=== PATIENT | female | born 1990 | race Caucasian/White ===

== ENCOUNTER → 2016-10-01 | Outpatient (CLI) | payer BC ==
[2016-10-01 15:42] LABS: CH 31.1; CHCM 34.4; HCT 41.5 % (34.0-46.0); HDW 2.34; HGB 13.9 gm/dL (11.4-16.0); MCH 30.4 pg (25.0-35.0); MCHC 33.5 g/dL (31.0-37.0); MCV 90.8 fL (80.0-100.0); Mean Platelet Volume 8.4; RBC 4.57 m/uL (3.80-5.40); RDW 12.7 % (11.5-15.5); WBC 14.4 k/uL (3.8-10.6)
--- NOTE | 2016-10-01 15:44 | US ---
EXAMINATION TYPE: US OB <= 14 wk fetus DATE OF EXAM: 10/01/2016 3:16 PM COMPARISON: NONE CLINICAL HISTORY: C36 Confirm Dates. EXAM PERFORMED: Transabdominal (TA) EXAM MEASUREMENTS: GESTATIONAL AGE / DATING Physician Established: (not yet established Dates by LMP: ( 9 weeks/5 days) EDC: 05/01/17 Dates by First Scan: 1st scan today Dates by Current Scan for: (9 weeks/1 days) EDC: 05/05/2017 MATERNAL ANATOMY Uterus: 12.6 x 5.0 x 7.7cm Right Ovary: 2.6 x 2.1 x 2.1cm Left Ovary: 2.3 x 1.4 x 1.6cm Post CDS / Adnexa: wnl : GESTATION / SURVEY CRL: 2.3cm ( 9 weeks/1 days) Yolk Sac (normal less than 6mm): Heart Rate: 188 bpm IUP: Viable IUP Date of LMP: 07/25/17 Beta HcG (if available): not available TECHNOLOGIST IMPRESSION: viable iup, dates above IMPRESSION: Single viable intrauterine corresponding to ultrasound age 9 weeks 1 day with estimated mark e of delivery second May 2017 by today's exam
[2016-10-01 16:03] LABS: Glucose 81 mg/dL (74-99); Non-African American GFR(MDRD) >60 (>60 ml/min/1.73 sqM)
[2016-10-01 16:34] LABS: Hepatitis B Surface Ag Index 0.07
[2016-10-03 05:00] LABS: Toxoplasma Antibody (IgG) <3.0 IU/mL (<7.2)
[2016-10-03 08:09] LABS: HIV-1/HIV-2 Ab Screen NONREAC (NON REAC)
== END | disposition home or self-care (01) ==
LOC: RADUSWWP 14:52
PROVIDERS: ATTEND Obstetrics & Gynecology
DX: Z36 Encounter for antenatal screening of mother (principal); Z34.81 Encounter for supervision of other normal pregnancy, first trimester; Z3A.09 9 weeks gestation of pregnancy
CPT/HCPCS: 76801; 82565; 82947; 85027; 86762; 86777; 86778; 86780; 86850; 86900; 86901; 87340; 87389

== ENCOUNTER 2016-10-30 14:06 | Emergency (ER) | payer BC, OTHER ==
[2016-10-30 14:14] VITALS: RESP 18
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
[2016-10-30 15:18] VITALS: BP 127/74; PULSE 90; TEMP 98.2
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
== END 2016-10-30 15:18 | disposition home or self-care (01) ==
LOC: EC 14:06
DX: O26.891 Other specified pregnancy related conditions, first trimester (principal); O99.331 Smoking (tobacco) complicating pregnancy, first trimester; S39.91XA Unspecified injury of abdomen, initial encounter; F17.200 Nicotine dependence, unspecified, uncomplicated; W50.1XXA Accidental kick by another person, initial encounter; Y93.F9 Activity, other caregiving; Y92.239 Unspecified place in hospital as the place of occurrence of the external cause; Y99.0 Civilian activity done for income or pay; Z3A.13 13 weeks gestation of pregnancy
CPT/HCPCS: 76801; 99284

== ENCOUNTER → 2017-01-15 | Outpatient (CLI) | payer BC ==
[2017-01-15 10:23] LABS: CH 31.5; CHCM 34.4; HCT 38.3 % (34.0-46.0); HDW 2.76; HGB 13.1 gm/dL (11.4-16.0); MCH 31.4 pg (25.0-35.0); MCHC 34.1 g/dL (31.0-37.0); MCV 92.1 fL (80.0-100.0); Mean Platelet Volume 8.3; RBC 4.16 m/uL (3.80-5.40); WBC 15.3 k/uL (3.8-10.6)
== END | disposition home or self-care (01) ==
LOC: LABWHC1 08:57
PROVIDERS: ATTEND Obstetrics & Gynecology
DX: Z34.82 Encounter for supervision of other normal pregnancy, second trimester (principal); Z3A.00 Weeks of gestation of pregnancy not specified
CPT/HCPCS: 36415; 82950; 85027

== ENCOUNTER 2017-03-07 14:10 | Observation (INO) | payer BC ==
[2017-03-07 14:50] VITALS: BP 140/92; PULSE 112; RESP 16; TEMP 97.4
[2017-03-07 14:53] LABS: Appearance,Urine Clear (Clear); Bilirubin,Urine Negative (Negative); Glucose,Urine (UA) Negative (Negative); Ketones,Urine Trace (Negative); Leukocyte Esterase,Urine Trace (Negative); Mucus,Urine Few /hpf; Nitrite,Urine Negative (Negative); Particle Count 6035; Protein,Urine 1+ (Negative); Specific Gravity,Urine 1.028 (1.001-1.035); Squamous Epithelial Cell,Urine 3 /hpf (0-4); UA Billing (MACRO vs. MICRO) MICRO; WBC,Urine 2 /hpf (0-5)
[2017-03-07 15:36] LABS: Basophils # (A) 0.1 k/uL (0-0.2); Basophils % (A) 1 %; CH 30.9; CHCM 33.9; Eosinophils # (A) 0.2 k/uL (0-0.7); Eosinophils % (A) 1 %; HDW 2.85; HGB 12.5 gm/dL (11.4-16.0); Luc # (Auto) 0.16; Luc % (Auto) 1; Lymphocytes # (A) 1.5 k/uL (1.0-4.8); Lymphocytes % (A) 11 %; MCH 30.8 pg (25.0-35.0); MCHC 33.7 g/dL (31.0-37.0); MCV 91.6 fL (80.0-100.0); Monocytes # (A) 0.7 k/uL (0-1.0); Monocytes % (A) 5 %; Neutrophils # (A) 11.7 k/uL (1.3-7.7); Neutrophils % (A) 82 %; RBC 4.04 m/uL (3.80-5.40); RDW 14.1 % (11.5-15.5); WBC 14.3 k/uL (3.8-10.6); WBC (Perox) 15.23
[2017-03-07 15:46] LABS: ALT 33 U/L (9-52); AST 16 U/L (14-36); Non-African American GFR(MDRD) >60 (>60 ml/min/1.73 sqM); Uric Acid 5.1 mg/dL (3.7-7.4)
--- NOTE | 2017-03-07 16:57 | P.HPOB ---
History of Present Illness H&P Date: 03/07/17 Chief Complaint: Hypertension and This patient is a pleasan 26 yr female EDC 05/01/2017 estimated gestational age 32 1/7 weeks who presents from the office for evaluation of hypertension and . Patients blood pressures his normally have been 120- 130/60-80. Blood pressure today in the office was 140/80. Evaluation here showed some mild BP elevations 142/90 but urine shows 1+ protein with normal labs. She is having no S/S of preeclampsia at this time. has otherwise been uncomplicated. Review of Systems Constitutional: Denies chills, Denies fever Cardiovascular: Denies chest pain, Denies shortness of breath Respiratory: Denies cough Genitourinary: Reports Menstruation: Reports amenorrhea Musculoskeletal: Denies myalgias Integumentary: Denies pruritus, Denies rash Neurological: Denies numbness, Denies weakness Psychiatric: Denies anxiety, Denies depression Past Medical History Past Medical History: No Reported History History of Any Multi-Drug Resistant Organisms: None Reported Past Surgical History: Adenoidectomy Additional Past Surgical History / Comment(s): Dilation and currettage. One and one EAB Past Anesthesia/Blood Transfusion Reactions: No Reported Reaction Past Psychological History: No Psychological Hx Reported Smoking Status: Current every day smoker Past Alcohol Use History: None Reported Past Drug Use History: None Reported Medications and Allergies Home Medications Medication Instructions Recorded Confirmed Type Pnv No.95/Ferrous Fum/Folic AC 1 each PO DAILY 03/07/17 03/07/17 History [ Multivitamin Tablet] Allergies Allergy/AdvReac Type Severity Reaction Status Date / Time No Known Allergies Allergy Verified 03/07/17 14:27 Exam - Vital Signs Vital signs: Vital Signs Temp Pulse Resp BP Pulse Ox 03/07/17 14:35 97.4 F L 112 H 16 140/92 03/07/17 14:31 97.4 F L 112 H 16 140/92 98 Intake and Output 03/07/17 03/07/17 03/07/17 06:59 14:59 22:59 Other: Weight 104.326 kg Patient Weight 03/08/17 06:59 Weight 104.326 kg - OBG Physical Exam Abdomen: bowel sounds normal, no diffuse tenderness, no bruit present, no guarding noted, no hepatomegaly, no splenomegaly, no mass Uterus: enlarged (Fundal height is appropriate for gestational age) No edema is noted. Results Result Diagrams: 03/07/17 15:13 03/07/17 15:13 Abnormal Lab Results - Last 24 Hours (Table) 03/07/17 03/07/17 Range/Units 14:40 15:13 WBC 14.3 H (3.8-10.6) k/uL Plt Count 148 L (150-450) k/uL Neutrophils # 11.7 H (1.3-7.7) k/uL Urine Protein 1+ H (Negative) Urine Ketones Trace H (Negative) Ur Leukocyte Esterase Trace H (Negative) Urine Mucus Few H (None) /hpf Assessment and Plan (1) Third trimester Narrative/Plan: This is a pleasant 26 yr female 32 and 1/7 weeks gestation with asymptomatic mild blood pressure elevation. Patient does have 1+ protein, therefore I am advising admission for 24hr urine, serial BP's, serial labs, and complete ultrasound with antepartum surveillance (NSTs). If she continues to do well, then discharge home on modified bedrest and followup with me on Friday. Dr. Arenas will see her over the next 48 hrs. I have discussed my concerns and treatment plan with the patient and she and her are in agreement. Status: Acute (2) Gestational hypertension Status: Acute
--- NOTE | 2017-03-07 17:07 | P.MSEPDOC ---
Presenting Problems - Arrival Data Date of Arrival on Unit: 03/07/17 Time of Arrival on Unit: 14:25 Mode of Transport: Portable Medical History - Information : 3 Para: 1 Term: 1 : 0 Abortions: Spontaneous or Elective: 1 Number of Living Children: 1 - Gestational Age Expected Date of Delivery: 05/01/17 Gestational Age by NORRIS (wks/days): 32 Weeks and 1 Days - History Complications: Other Comment: work up for pih and nst Review of Systems - Review of Systems Constitutional: No problems Breast: No problems ENT: No problems Cardiovascular: No problems Respiratory: No problems Gastrointestinal: No problems Genitourinary: No problems Musculoskeletal: No problems Neurological: No problems Skin: No problems Comment: sent from office Vital Signs - Temperature Temperature: 97.4 F Temperature Source: Tympanic - Pulse Right Radial Pulse Rate: 112 Pulse Assessment Method: Automatic Cuff - Respirations Respiratory Rate: 16 Oxygen Delivery Method: Room Air - Blood Pressure Right Arm Blood Pressure: 140/92 Blood Pressure Mean: 108 Blood Pressure Source: Automatic Cuff Medical Screen Scoring (Pre) - Cervical Exam Dilation: Exam Deferred Effacement: Exam Deferred - Uterine Contractions Frequency: N/A Duration: N/A Intensity: N/A - Maternal Vital Signs Maternal Temperature: N/A Maternal Blood Pressure: Systolic >139 = 2 Signs of Preeclampsia: N/A Maternal Respirations: N/A - Maternal Trauma Maternal Trauma: N/A - Assessment Baseline FHR: 140 Heart Rate - NICHD Category: Category I (Normal) = 0 NST: Reactive Position: N/A Station: N/A - Total Score Total Score (Pre): 2 - Level of Risk Level of Risk: Low (0-5) Physician Notification (Pre) - Notification Comment Comment: seen in office sent with orders Disposition - Disposition OB Disposition: Discharge to home I agree with the RN Medical Screening Exam: Yes Risk & Benefit of care provided described in d/c instruction: Yes Diagnosis: GESTATIONAL HTN W/O SIGNIFICANT PROTEINURIA, THIRD TRIMESTER
--- NOTE | 2017-03-07 17:20 | US ---
EXAMINATION TYPE: US OB >= 14 wk fetus DATE OF EXAM: 03/07/2017 COMPARISON: US 10/30/2016 CLINICAL HISTORY: 32 weeks 1 day. elevated bp's; smoker; TECHNIQUE: Transabdominal (TA) GESTATIONAL AGE / DATING Physician Established: (32 weeks/1 day) EDC: 05/01/2017 Dates by LMP: (32 weeks/1 day) EDC: 05/01/2017 Dates by First Scan: (31 weeks/4days) EDC: 05/05/2017 Dates by Current Scan: (31 weeks/1 day) EDC: 05/08/2017 SURVEY IUP: Single PLACENTA: fundal posterior PREVIA: No Previa JOSÉ MIGUEL: 13.08 cm Normal CERVICAL LENGTH (transabdominal: norm > 3.0cm): 3.1 cm BIOMETRY PRESENTATION: Vertex LIE: Longitudinal BPD: 7.8 cm 31 weeks / 3 days HC: 28.5 cm 31 weeks / 2 days AC: 27.2 cm 31 weeks / 2 days FL: 6.1 cm 31 weeks / 5 days ESTIMATED WEIGHT IN GRAMS: 1766.0 grams ESTIMATED WEIGHT IN LBS/OZ: 3 lbs. 14 oz. WEIGHT PERCENTAGE BASED ON ESTABLISHED DATES: 19.5% HC/AC: 1.05 Normal FL/AC: 22.44 Normal HEART RATE: 160 bpm RHYTHM: Normal Single, live, IUP,31 weeks/1 day, EDC: 05/08/2017, [id number] IMPRESSION: There is satisfactory growth compared to 10/01/2016. Amniotic fluid is adequate.
[2017-03-07 18:11] VITALS: BMI 37.1
[2017-03-08 05:35] LABS: Basophils # (A) 0.1 k/uL (0-0.2); Basophils % (A) 1 %; CH 30.9; CHCM 33.6; Eosinophils # (A) 0.3 k/uL (0-0.7); Eosinophils % (A) 2 %; HCT 35.3 % (34.0-46.0); HDW 2.88; HGB 11.9 gm/dL (11.4-16.0); Immature Gran Flag Slight; Luc # (Auto) 0.24; Luc % (Auto) 2; Lymphocytes % (A) 16 %; MCH 31.2 pg (25.0-35.0); MCHC 33.8 g/dL (31.0-37.0); MCV 92.4 fL (80.0-100.0); Monocytes # (A) 0.7 k/uL (0-1.0); Monocytes % (A) 6 %; Neutrophils # (A) 8.7 k/uL (1.3-7.7); Neutrophils % (A) 73 %; RBC 3.82 m/uL (3.80-5.40); RDW 14.7 % (11.5-15.5); WBC (Perox) 13.67
[2017-03-08 05:46] LABS: ALT 30 U/L (9-52); AST 15 U/L (14-36); Blood Urea Nitrogen 8 mg/dL (7-17); LDH 426 U/L (313-618); Non-African American GFR(MDRD) >60 (>60 ml/min/1.73 sqM); Uric Acid 4.7 mg/dL (3.7-7.4)
--- NOTE | 2017-03-08 06:36 | P.PNOBGAP ---
Subjective - Subjective Principal diagnosis: Elevated blood pressures Interval history: The patient denies any headaches, blurry vision, epigastric pain, or swelling. She admits to good movement. She denies any feeling any regular contractions. She does state that her platelet count was slightly low when she did her Glucola test at about 135,000. Antepartum ROS: Reports new complaints, Reports movement normal Objective - Vital Signs Vital Signs: Vital Signs Temp Pulse Resp BP Pulse Ox 03/07/17 17:07 97.4 F L 112 H 16 140/92 03/07/17 14:35 97.4 F L 112 H 16 140/92 03/07/17 14:31 97.4 F L 112 H 16 140/92 98 Intake and Output 03/07/17 03/07/17 03/08/17 14:59 22:59 06:59 Other: Weight 104.326 kg 104.326 kg Patient Weight 03/08/17 06:59 Weight 104.326 kg - Exam FHR: class 1 Abdomen: Present: normal appearance, soft. Absent: tenderness Uterus: Absent: tenderness - Labs Labs: Abnormal Labs 03/07/17 03/07/17 03/08/17 14:40 15:13 05:19 WBC 14.3 H 12.0 H Plt Count 148 L 134 L Neutrophils # 11.7 H 8.7 H Urine Protein 1+ H Urine Ketones Trace H Ur Leukocyte Esterase Trace H Urine Mucus Few H Assessment and Plan (1) Gestational hypertension Narrative/Plan: Blood pressures have been in the 120s to 130s over 60s to 70s and she has been in the hospital. Her highest blood pressures were on admission at 140/92. She is asymptomatic. Will await 24 hour urine collection results. Most likely she will go home on bedrest later this afternoon after results are back. She has an appointment to follow up with Dr. Yu on Friday. She is advised to keep that appointment and return to the hospital if any new signs or symptoms arise. Current Visit: Yes Status: Acute Code(s): O13.9 - GESTATIONAL HTN W/O SIGNIFICANT PROTEINURIA, UNSP TRIMESTER SNOMED Code(s): 04981949 (2) Third trimester Current Visit: Yes Status: Acute Code(s): Z34.93 - ENCNTR FOR SUPRVSN OF NORMAL PREG, UNSP, THIRD TRIMESTER SNOMED Code(s): 18253761
== END 2017-03-08 16:14 | disposition home or self-care (01) ==
LOC: FBPOP 14:10 → 4FBP 15:58
PROVIDERS: ADMIT Obstetrics & Gynecology; ATTEND Obstetrics & Gynecology
DX: O14.93 Unspecified pre-eclampsia, third trimester (principal); Z3A.32 32 weeks gestation of pregnancy; O99.333 Smoking (tobacco) complicating pregnancy, third trimester; F17.200 Nicotine dependence, unspecified, uncomplicated
CPT/HCPCS: 59025; 99215; 81050; 82565 ×2; 82570; 83615; 84450 ×2; 84460 ×2; 84520; 84550 ×2; 85025 ×2; 81001; 84156; 76805; G0378 ×2

== ENCOUNTER 2017-04-03 14:56 | Observation (INO) | payer BC ==
[2017-04-03 16:19] LABS: Basophils # (A) 0.1 k/uL (0-0.2); Basophils % (A) 0 %; CH 29.9; CHCM 34.1; Eosinophils # (A) 0.2 k/uL (0-0.7); Eosinophils % (A) 1 %; HCT 36.4 % (34.0-46.0); HDW 3.08; HGB 12.6 gm/dL (11.4-16.0); Luc # (Auto) 0.26; Luc % (Auto) 2; Lymphocytes # (A) 1.5 k/uL (1.0-4.8); Lymphocytes % (A) 10 %; MCH 30.7 pg (25.0-35.0); MCHC 34.7 g/dL (31.0-37.0); MCV 88.4 fL (80.0-100.0); Mean Platelet Volume 8.7; Monocytes # (A) 0.9 k/uL (0-1.0); Monocytes % (A) 6 %; Neutrophils % (A) 81 %; RBC 4.12 m/uL (3.80-5.40); RDW 14.2 % (11.5-15.5); WBC 14.9 k/uL (3.8-10.6); WBC (Perox) 15.49
[2017-04-03 16:20] LABS: Amorphous Sediment,Urine Occasional /hpf; Appearance,Urine Cloudy (Clear); Bacteria,Urine Moderate /hpf; Bilirubin,Urine Negative (Negative); Calcium Oxalate Crystals,Urine Occasional /hpf; Glucose,Urine (UA) Negative (Negative); Ketones,Urine Trace (Negative); Leukocyte Esterase,Urine Trace (Negative); Mucus,Urine Few /hpf; Nitrite,Urine Negative (Negative); Particle Count 7416; Protein,Urine 1+ (Negative); RBC,Urine 1 /hpf (0-5); Specific Gravity,Urine 1.027 (1.001-1.035); Sperm,Urine Rare /hpf; Squamous Epithelial Cell,Urine 7 /hpf (0-4); UA Billing (MACRO vs. MICRO) MICRO; WBC,Urine 21 /hpf (0-5)
[2017-04-03 16:21] LABS: ALT 32 U/L (9-52); AST 16 U/L (14-36); Blood Urea Nitrogen 8 mg/dL (7-17); LDH 431 U/L (313-618); Non-African American GFR(MDRD) >60 (>60 ml/min/1.73 sqM); Uric Acid 5.3 mg/dL (3.7-7.4)
[2017-04-03 16:31] VITALS: BMI 33.7
--- NOTE | 2017-04-03 17:13 | P.HPOB ---
History of Present Illness H&P Date: 04/03/17 Chief Complaint: Intrauterine 36 weeks: Gestational hypertension Afshan is a 3 P1 at 36 weeks gestation. It is noted that she is had blood pressure issues since approximately 32 weeks when her blood pressure is 140/80 she's persisted to have mildly elevated blood pressures and has had preeclamptic labs done previously and a prior 24-hour urine. Today in the office her blood pressure was slightly elevated above that with a 144/96 and she did have one blood pressure in labor and delivery 160/80. However she had just smoked cigarette prior to that blood pressure and she has no signs or symptoms of severe preeclampsia. Pertinent laboratory studies were drawn in the only abnormal finding was that of fractionally low platelets. However this number section elevated over her last platelet check. Her platelets are 140 and does not appear to be and help syndrome. Her heart is regular, lungs are clear, extremities are without pain. There is no epigastric pain no headache and deep tendon reflexes are +2-4. Minimal peripheral edema no central edema. We will redo her 24 hour urine as she is . Should she her blood pressures elevated again and it appeared that she be starting to go into severe preeclampsia will plan to do a delivery tonight. However should her blood pressures remained stable and her 24 urine returned with a normal value will plan to continue with nonstress tests through the weekend and then she will be delivered at [address] Staples. All questions are answered for her at this time and she agrees with this treatment plan. It should be noted that her past medical history is otherwise unremarkable. Past surgical history adenoidectomy. ALLERGIES none. Family history is for hypertension. Social history is significant for tobacco abuse only. Assessment intrauterine at 36 weeks. Plan 24 urine serial blood pressures and monitoring of baby. Past Medical History Past Medical History: No Reported History History of Any Multi-Drug Resistant Organisms: None Reported Past Surgical History: Adenoidectomy Additional Past Surgical History / Comment(s): Dilation and currettage. One and one EAB Past Anesthesia/Blood Transfusion Reactions: No Reported Reaction Past Psychological History: No Psychological Hx Reported Smoking Status: Current every day smoker Past Alcohol Use History: None Reported Past Drug Use History: None Reported - Past Family History Mother Family Medical History: No Reported History Medications and Allergies Home Medications Medication Instructions Recorded Confirmed Type Pnv No.95/Ferrous Fum/Folic AC 1 each PO DAILY 03/07/17 03/07/17 History [ Multivitamin Tablet] Allergies Allergy/AdvReac Type Severity Reaction Status Date / Time No Known Allergies Allergy Verified 03/07/17 14:27 Exam Osteopathic Statement: *. No significant issues noted on an osteopathic structural exam other than those noted in the History and Physical/Consult. - Vital Signs Vital signs: Vital Signs Pulse Resp 04/03/17 16:28 100 17 Intake and Output 04/03/17 04/03/17 04/03/17 06:59 14:59 22:59 Other: Weight 94.801 kg Patient Weight 04/04/17 06:59 Weight 94.801 kg - OBG Physical Exam Breast: both: normal (no masses) Abdomen: bowel sounds normal, no diffuse tenderness, no bruit present, no guarding noted, no hepatomegaly, no splenomegaly, no mass Vulva: both: normal Vagina: normal moisture, no discharge Cervix: no lesion, no discharge Uterus: normal size, normal contour Adnexa: both: normal Anus/Rectum: normal perianal skin, no rectal mass, no hemorrhoids, heme negative Results Result Diagrams: 04/03/17 15:50 04/03/17 15:50 Abnormal Lab Results - Last 24 Hours (Table) 04/03/17 04/03/17 04/03/17 Range/Units 15:45 15:50 15:50 WBC 14.9 H (3.8-10.6) k/uL Plt Count 140 L (150-450) k/uL Neutrophils # 12.0 H (1.3-7.7) k/uL Creatinine 0.50 L (0.52-1.04) mg/dL Urine Appearance Cloudy H (Clear) Urine Protein 1+ H (Negative) Urine Ketones Trace H (Negative) Ur Leukocyte Esterase Trace H (Negative) Urine WBC 21 H (0-5) /hpf Ur Squamous Epith Cells 7 H (0-4) /hpf Calcium Oxalate Crystal Occasional H (None) /hpf Amorphous Sediment Occasional H (None) /hpf Urine Bacteria Moderate H (None) /hpf Urine Mucus Few H (None) /hpf
[2017-04-04 04:41] VITALS: BP 130/60; PULSE 95; RESP 14; TEMP 98.1
--- NOTE | 2017-04-04 09:00 | P.DS ---
Providers Date of admission: 04/03/17 15:25 Expected date of discharge: 04/04/17 Attending physician: Jake Yu Primary care physician: Stated None Hospital Course: Negative seen and evaluated this morning. Her blood pressures have all been significantly improved with her on bedrest. She has some not had any cigarettes through the night and this may be the root cause of her intermittent hypertension as her blood pressure seemed to up immediately after smoking a cigarette. We are waiting for a 24-hour urine. Once this returned should be normal we'll plan discharged home with instructions to have a repeat NST and blood pressure on Friday or Friday. She is aware of precautions for preeclampsia and went to return should she have any symptoms. Otherwise with vital signs improved blood pressures improved likely discharged home later this afternoon. On physical exam her vital signs are stable and afebrile. Heart regular, lungs clear, extremities without pain. heart tones are reactive in the 140s. Assessment intrauterine 36 weeks gestational hypertension. Plan NST and blood pressure check in 3 days and she is scheduled for induction on . Patient Condition at Discharge: Good Plan - Discharge Summary New Discharge Prescriptions: No Action Pnv No.95/Ferrous Fum/Folic AC [ Multivitamin Tablet] 1 each PO DAILY Discharge Medication List Pnv No.95/Ferrous Fum/Folic AC [ Multivitamin Tablet] 1 each PO DAILY [History] Follow up Appointment(s)/Referral(s): Jake Yu MD [STAFF PHYSICIAN] - 3 Days Activity/Diet/Wound Care/Special Instructions: Return for any symptoms of hypertension. Any headaches, epigastric pain, or significant swelling Discharge Disposition: HOME SELF-CARE
== END 2017-04-04 18:03 | disposition home or self-care (01) ==
LOC: FBPOP 14:56 → INTOOBSV 15:25 → 4FBP 15:25
PROVIDERS: ADMIT Obstetrics & Gynecology; ATTEND Obstetrics & Gynecology
DX: O13.3 Gestational [pregnancy-induced] hypertension without significant proteinuria, third trimester (principal); Z3A.36 36 weeks gestation of pregnancy; O99.333 Smoking (tobacco) complicating pregnancy, third trimester
CPT/HCPCS: 59025; 99215; 81050; 82565; 83615; 84450; 84460; 84520; 84550; 85025; 81001; 84156; G0378 ×2

== ENCOUNTER 2017-04-10 06:01 | Inpatient (IN) | payer BC ==
--- NOTE | 2017-04-09 07:11 | P.HPOB ---
History of Present Illness H&P Date: 04/09/17 Chief Complaint: Hypertension This patient is a pleasant 26-year-old 3 para 1 female estimated date of confinement 05/01/2017 estimated gestational age 37-0/7 weeks who presents to labor and delivery for delivery secondary to gestational hypertension. Patient does not have a history of hypertension however approximately 32 weeks' began developing elevated blood pressures. The patient was admitted and had serial blood pressures and a 24-hour urine. There is no evidence of preeclampsia at that time. Patient has continued to have elevated blood pressures and per current ACOG recommendations she is proceeding with delivery at this time. care has otherwise been uncomplicated. Review of Systems Eyes: denies blurred vision, denies pain Cardiovascular: Denies chest pain, Denies shortness of breath Gastrointestinal: Reports heartburn Genitourinary: Reports Menstruation: Reports amenorrhea Past Medical History Past Medical History: No Reported History History of Any Multi-Drug Resistant Organisms: None Reported Past Surgical History: Adenoidectomy Additional Past Surgical History / Comment(s): Dilation and currettage. One and one EAB Past Anesthesia/Blood Transfusion Reactions: No Reported Reaction Past Psychological History: No Psychological Hx Reported Smoking Status: Current every day smoker Past Alcohol Use History: None Reported Past Drug Use History: None Reported - Past Family History Mother Family Medical History: No Reported History Medications and Allergies Home Medications Medication Instructions Recorded Confirmed Type Pnv No.95/Ferrous Fum/Folic AC 1 each PO DAILY 03/07/17 03/07/17 History [ Multivitamin Tablet] Allergies Allergy/AdvReac Type Severity Reaction Status Date / Time No Known Allergies Allergy Verified 03/07/17 14:27 Exam - OBG Physical Exam Abdomen: bowel sounds normal, no diffuse tenderness, no bruit present, no guarding noted, no hepatomegaly, no splenomegaly, no mass Vulva: both: normal Vagina: normal moisture, no discharge Cervix: no lesion (Cervix in the office is 2 cm dilated.), no discharge Uterus: enlarged (Fundal height is consistent with a term .) Results blood work shows she is B+, rubella immune, RPR nonreactive, hepatitis B negative, HIV nonreactive, RPR is nonreactive, Glucola was normal, ultrasounds have shown normal anatomy, group B strep was negative. Assessment and Plan (1) Gestational hypertension Narrative/Plan: This is a pleasant 26-year-old 3 para 1 female 37-0/7 weeks gestation who is admitted to labor and delivery for induction of labor secondary to gestational hypertension. Patient's blood pressures have been elevated for several weeks in the 130 -140/70-90 range and per current recommendations I have recommended proceed with delivery at 37 weeks. Plan is induction of labor and anticipate vaginal delivery. I am going to check preeclampsia labs once again. Status: Acute (2) Third trimester Status: Acute
[2017-04-10] MEDS ORDERED: CARBOPROST TROMETHAMINE 250 MCG/ML 1 ML AMP IM PRN (06:05)
[2017-04-10] MEDS ORDERED: METHYLERGONOVINE 0.2 MG/ML 1 ML AMP IM PRN (06:05)
[2017-04-10] MEDS ORDERED: OXYTOCIN 20 UNITS/1000 ML NS 1,000 ML IV SCH ×2 (06:05→13:02)
[2017-04-10] MEDS ORDERED: TERBUTALINE 1 MG/ML VIAL SQ PRN (06:05)
[2017-04-10] MEDS ORDERED: LACTATED RINGERS 1,000 ML IV SCH (06:05)
[2017-04-10] MEDS ORDERED: OXYTOCIN 10 UNIT/ML 1 ML VIAL IM PRN (06:05)
[2017-04-10] MEDS ORDERED: LIDOCAINE 1% (PF) 10 MG/ML (30 ML SDV) SQ PRN (06:05)
[2017-04-10 06:25] LABS: Basophils # (A) 0.1 k/uL (0-0.2); Basophils % (A) 1 %; CH 29.8; CHCM 34.4; Eosinophils # (A) 0.2 k/uL (0-0.7); Eosinophils % (A) 1 %; HCT 38.5 % (34.0-46.0); HDW 3.07; HGB 13.3 gm/dL (11.4-16.0); Luc # (Auto) 0.35; Luc % (Auto) 3; Lymphocytes # (A) 1.8 k/uL (1.0-4.8); Lymphocytes % (A) 13 %; MCHC 34.5 g/dL (31.0-37.0); MCV 86.9 fL (80.0-100.0); Mean Platelet Volume 8.4; Monocytes # (A) 0.8 k/uL (0-1.0); Monocytes % (A) 6 %; Neutrophils # (A) 10.9 k/uL (1.3-7.7); Neutrophils % (A) 77 %; RBC 4.43 m/uL (3.80-5.40); RDW 14.4 % (11.5-15.5); WBC 14.1 k/uL (3.8-10.6); WBC (Perox) 14.37
[2017-04-10 06:29] VITALS: RESP 16; BMI 33.5
[2017-04-10 06:36] LABS: ALT 32 U/L (9-52); AST 23 U/L (14-36); Alkaline Phosphatase 164 U/L (38-126); Bilirubin, Delta 0.2 mg/dL (0.0-0.2); Non-African American GFR(MDRD) >60 (>60 ml/min/1.73 sqM); Total Bilirubin 0.4 mg/dL (0.2-1.3); Total Protein 6.9 g/dL (6.3-8.2); Uric Acid 6.2 mg/dL (3.7-7.4)
[2017-04-10 06:38] LABS: INR 0.9 (<1.2); Prothrombin Time 9.6 sec (9.0-12.0)
[2017-04-10 07:41] LABS: Partial Thromboplastin Time 21.3 sec (22.0-30.0)
--- NOTE | 2017-04-10 12:54 | P.PROBDLV ---
Vaginal Delivery Note - . Vaginal Delivery Note: Normal vaginal delivery viable male Apgars 9 and 9 delivery time is 1237 hrs. Please see dictated H&P for intimate details of this patient's admission. Brief summary this is a pleasant 26-year-old 3 para 1 female 37-0/7 weeks gestation who was admitted to labor and delivery for induction of labor secondary to gestational hypertension. Patient is admitted and she is 2-3 cm dilated has artificial rupture membranes for clear fluid. Labor is induced with Pitocin per protocol. Labor progresses and she does get an epidural for pain control. Patient gets to complete and pushes the head to the perineum. Posterior perineum was supported and we have controlled delivery of the 's head over the intact perineum. Also nares are bulb suctioned. There is no evidence of a nuchal cord. With gentle downward traction we then have delivery the anterior and posterior shoulder and rest this 's body. This is a vigorous viable male infant Apgars are 9 and 9 delivery time is 1237 hrs. After delivery of the the umbilical cords doubly clamped and cut appears to be trivascular. The placenta spontaneously delivered intact. Estimated blood loss is 150 mL. There is a midline periurethral laceration that is hemostatic and does not require sutures. There are no other lacerations. All counts are correct 3. There are no complications. and mother stable delivery room.
[2017-04-10] MEDS ORDERED: diphenhydrAMINE 25 MG CAP PO PRN (13:02)
[2017-04-10] MEDS ORDERED: HYDROCORTISONE 2.5% RECTAL CREAM 30 GM TUBE RECTAL PRN (13:02)
[2017-04-10] MEDS ORDERED: ZOLPIDEM 5 MG TAB PO PRN (13:02)
[2017-04-10] MEDS ORDERED: IBUPROFEN 600 MG TAB PO PRN (13:02)
[2017-04-10] MEDS ORDERED: SIMETHICONE 80 MG CHEWABLE PO PRN (13:02)
[2017-04-10] MEDS ORDERED: ACETAMINOPHEN TAB 325 MG TAB PO PRN (13:02)
[2017-04-10] MEDS ORDERED: WITCH HAZEL 1 EACH MED..PAD TOPICAL PRN (13:02)
[2017-04-10] MEDS ORDERED: Acetaminophen-Codeine 300-30mg TAB PO PRN (13:02)
[2017-04-10] MEDS ORDERED: LANOLIN CREAM 5 GM TUBE TOPICAL PRN (13:02)
[2017-04-10] MEDS ORDERED: BENZOCAINE/MENTHOL SPRAY 1 GM/SPRAY AEROSOL TOPICAL PRN (13:02)
[2017-04-10] MEDS ORDERED: diphenhydrAMINE 50 MG/ML 1 ML VIAL IVP PRN (13:02)
[2017-04-10] MEDS ORDERED: BISACODYL 10 MG SUPP RECTAL PRN (13:02)
[2017-04-10] MEDS: SENNOSIDES-DOCUSATE SODIUM 1 EACH TAB PO SCH ×2 (20:06→21:33)
[2017-04-10] MEDS: Acetaminophen-Codeine 300-30mg TAB PO PRN (21:33)
[2017-04-11 00:19] VITALS: BP 126/78
--- NOTE | 2017-04-11 06:08 | P.PNOBGVD ---
Subjective - Subjective Patient reports: Reports appetite normal, Reports voiding normally, Reports pain well controlled, Reports ambulating normally : doing well Objective - Latest Vital Signs Latest vital signs: Vital Signs Temp Pulse Resp BP Pulse Ox 04/11/17 00:00 98.6 F 82 16 126/78 98 04/10/17 20:00 98.2 F 57 L 16 122/51 04/10/17 16:00 96.4 F L 85 16 122/57 04/10/17 14:45 96.5 F L 85 16 122/57 04/10/17 14:12 97.7 F 84 16 120/69 04/10/17 13:45 86 16 124/66 04/10/17 13:33 90 16 120/61 04/10/17 13:15 80 16 121/60 04/10/17 12:45 97.9 F 90 16 135/63 04/10/17 06:17 98.0 F 118 H 16 155/97 Intake and Output 04/10/17 04/10/17 04/11/17 14:59 22:59 06:59 Output Total 300 Balance -300 Output: Urine 150 Straight 150 Estimated Blood Loss 150 Other: # Voids 1 - Exam Lungs: bilateral: normal Chest: Normal S1, Normal S2 Extremities: Present: normal Abdomen: Present: normal appearance, soft Uterus: Present: normal, firm - Labs Labs: Abnormal Lab Results - Last 24 Hours (Table) 04/10/17 04/10/17 04/10/17 Range/Units 06:10 06:10 06:10 WBC 14.1 H (3.8-10.6) k/uL Plt Count 148 L (150-450) k/uL Neutrophils # 10.9 H (1.3-7.7) k/uL APTT 21.3 L (22.0-30.0) sec Alkaline Phosphatase 164 H (38-126) U/L Assessment and Plan (1) Gestational hypertension Narrative/Plan: day #1. Patient is resting without complaints and wishes to go home. Vital signs are stable, blood pressures are good. Patient is having normal lochia. My impression this is a normal course. Blood pressures have normalized. Patient's felt to be stable for discharge home. Current Visit: No Status: Acute Code(s): O13.9 - GESTATIONAL HTN W/O SIGNIFICANT PROTEINURIA, UNSP TRIMESTER SNOMED Code(s): 26760008 (2) Third trimester Current Visit: No Status: Acute Code(s): Z34.93 - ENCNTR FOR SUPRVSN OF NORMAL PREG, UNSP, THIRD TRIMESTER SNOMED Code(s): 32512070
--- NOTE | 2017-04-11 06:09 | P.DS ---
Providers Date of admission: 04/10/17 06:01 Expected date of discharge: 04/11/17 Attending physician: Jake Yu Primary care physician: Stated None - Discharge Diagnosis(es) (1) Gestational hypertension Current Visit: No Status: Acute (2) Third trimester Current Visit: No Status: Acute Hospital Course: Please see dictated H&P for intimate details of this patient's admission. Brief summary this is a pleasant 26-year-old 3 para 1 female 37 weeks gestation admitted to labor and delivery for induction secondary to gestational hypertension. Patient is admitted has uncomplicated induction of labor quickly goes on have a vaginal delivery viable male infant. Please see dictated delivery note. day 1 patient was doing well felt be stable for discharge home follow up with me in 6 weeks. Procedures: Induction of labor and normal vaginal delivery. Patient Condition at Discharge: Good Plan - Discharge Summary New Discharge Prescriptions: New Acetaminophen-Codeine 300-30mg [Tylenol w/codeine #3] 1 - 2 each PO Q4HR PRN #30 tab PRN Reason: Mild Pain exceeding Tylenol Ibuprofen [Motrin] 600 mg PO Q6HR PRN #40 tab PRN Reason: Mild Pain Or Fever >= 100.5 No Action Pnv No.95/Ferrous Fum/Folic AC [ Multivitamin Tablet] 1 each PO DAILY Discharge Medication List Pnv No.95/Ferrous Fum/Folic AC [ Multivitamin Tablet] 1 each PO DAILY [History] Acetaminophen-Codeine 300-30mg [Tylenol w/codeine #3] 1 - 2 each PO Q4HR PRN # 30 tab 04/11/17 [Rx] Ibuprofen [Motrin] 600 mg PO Q6HR PRN #40 tab 04/11/17 [Rx] Follow up Appointment(s)/Referral(s): Jake Yu MD [STAFF PHYSICIAN] - 05/22/17 8:30 am Patient Instructions/Handouts: Vaginal Delivery (DC) Activity/Diet/Wound Care/Special Instructions: No intercourse or anything per vagina for 6 weeks. Please call if any fever, chills, excessive vaginal bleeding, and/or abdominal pain. Discharge Disposition: HOME SELF-CARE
[2017-04-11] MEDS: SENNOSIDES-DOCUSATE SODIUM 1 EACH TAB PO SCH (07:54)
[2017-04-11] MEDS: Acetaminophen-Codeine 300-30mg TAB PO PRN (07:55)
[2017-04-11 08:02] VITALS: PULSE 68; TEMP 97.9
[2017-04-11] MEDS ORDERED: fentaNYL (PF) 50 MCG/ML 5 ML AMP ONE (09:13)
[2017-04-11] MEDS ORDERED: BUPIVACAINE (PF) 0.25% 30 ML VIAL ONE (09:13)
[2017-04-11] MEDS ORDERED: SODIUM CHLORIDE 0.9% 100 ML BAG ONE (09:13)
== END 2017-04-11 15:00 | disposition home or self-care (01) | DRG 775 ==
LOC: 4FBP 06:01
PROVIDERS: ADMIT Obstetrics & Gynecology; ATTEND Obstetrics & Gynecology
PROC: 3E033VJ Introduction of Other Hormone into Peripheral Vein, Percutaneous Approach (ICD-10-PCS; principal; 2017-04-10)
PROC: 10E0XZZ Delivery of Products of Conception, External Approach (ICD-10-PCS; 2017-04-10)
PROC: 3E0S3NZ Introduction of Analgesics, Hypnotics, Sedatives into Epidural Space, Percutaneous Approach (ICD-10-PCS; 2017-04-10)
DX: O13.4 Gestational [pregnancy-induced] hypertension without significant proteinuria, complicating childbirth (principal); F17.200 Nicotine dependence, unspecified, uncomplicated; O99.334 Smoking (tobacco) complicating childbirth; O71.82 Other specified trauma to perineum and vulva; Z37.0 Single live birth; Z3A.37 37 weeks gestation of pregnancy
CPT/HCPCS: 80076; 82565; 84550; 85025; 85610; 85730; 88307